=== PATIENT | female | born 1975 | race Caucasian/White ===

== ENCOUNTER 2017-04-18 16:59 | Inpatient (IN) | payer OTHER ==
[2017-04-18] MEDS ORDERED: SUMAtriptan 6 MG/0.5 ML VIAL SC ONE (17:32)
--- NOTE | 2017-04-18 17:34 | EDPHY ---
H & P Smoking Status: Current some day smoker Time Seen by Provider: 04/18/17 17:13 HPI/ROS: CHIEF COMPLAINT: Headache HISTORY OF PRESENT ILLNESS: This 42-year-old woman presents the emergency department after having driven here from [place]. She says that she just wanted to get away. She says her headache has been present for the last 24 hours. Not thunderclap in onset or worst of life. It is a typical migraine for her with left-sided headache which is associated with some mild nausea and is worse with exposure to light. Does not radiate. No trauma or injury and no toxic exposures. Does not have visual symptoms or neck pain. Further history is obtained by her father under the MDM. Apparently she called EMS because she ran out of money and was confused and did not know where she was and had a headache. REVIEW OF SYSTEMS: Eye: no change in vision ENT: no sore throat Cardiac: no chest pain or syncope Pulmonary: no cough or SOB Abdomen: no vomiting, diarrhea, abdominal pain Musculoskeletal: no back pain Skin: no rash Neuro: HPI Constitutional: no fever : no urinary symptoms Psychiatric: Admits to seeing people following her. Denies suicidal ideation or homicidal ideation A comprehensive 10 point review of systems is otherwise negative aside from elements mentioned in the history of present illness. PAST MEDICAL HISTORY: Migraine headaches. Psychotic disorder per her father. Unknown type. Fibromyalgia on gabapentin. Anxiety, admits to previous psychiatric hospitalization for depression, hypertension. Social history: Tobacco smoker. Denies drugs. General Appearance: Alert and conversant, cooperative. Eyes: No scleral icterus. ENT, Mouth: Normal mucous membranes. Respiratory: Normal respiratory effort, breath sounds equal, lungs are clear to auscultation. Cardiovascular: Regular rate and rhythm. Gastrointestinal: Abdomen is soft and non tender. Neurological: Alert and oriented x3. Normally conversant. Face symmetric, normal movement and sensation in all extremities. Normal [id number]-[id number]-mtei bilaterally, no pronator drift. Ambulatory without ataxia. Skin: Warm and dry, no rashes. Musculoskeletal: No peripheral edema and no joint swelling. Psychiatric: Patient suspicious. Reluctant to give me details about previous psychiatric hospitalization. Reluctant to discuss the details of the fact that she is seeing people following her. Emergency Department course/MDM: Patient's father called us; discussed at 1732. Previous hospitalizations for psychiatric reasons, mentions schizophrenia as previous diagnosis mentioned to him. Previous paranoia about people listening through the radio to her, following her. Better on medications. Patient called cousin in [place], cousin called patient's uncle, that person called her father, father called PD, PD told father she was at [facility]. According to the father the patient called 911 because she was confused, did not know where she was, was out of money, and had a headache. After this information, patient is placed on a mental hold by myself for grave disability. 1841: Patient is up to the bathroom, feels better. Smiling. Treated for hypokalemia with 2 g IV magnesium and 40 mEq oral potassium. 2100: Signed out to Alejandrina at 1999 with psych evaluation pending. Repeat Istat K+ now. (Raghavendra Marinelli) Constitutional: Initial Vital Signs Temperature (C) 36.8 C 04/18/17 17:25 Heart Rate 103 H 04/18/17 17:25 Respiratory Rate 18 04/18/17 17:25 Blood Pressure 128/97 H 04/18/17 17:25 O2 Sat (%) 94 04/18/17 17:25 O2 Delivery Mode Room Air Allergies/Adverse Reactions: Sulfa (Sulfonamide Antibiotics) Allergy (Verified 04/18/17 17:33) Home Medications: Medication Instructions Recorded Dextroamphetamine/Amphetamine 30 mg PO BID 04/18/17 [Adderall 30 mg Tablet] Gabapentin [Neurontin 300 MG (*)] 600 mg PO QID PRN 04/18/17 Hydrochlorothiazide [HCTZ (*)] 25 mg PO BID 04/18/17 Potassium Cl [Klor-Con] 10 meq PO BID 04/18/17 Sumatriptan Succinate [Imitrex] 100 mg PO DAILY PRN 04/18/17 Aspirin [Aspirin 325 mg (*)] 325 mg PO DAILY PRN 04/19/17 Ibuprofen [Motrin (*)] 200 mg PO DAILY PRN 04/19/17 Medical Decision Making ED Course/Re-evaluation: 0 700: The patient was signed out to me at change of shift. I discussed the case with Dr. Rueda. EPS will come and re-evaluate the patient this morning. At the time of sign out the patient was doing well. She was resting comfortably in the bed. She had no complaints. Patient became mildly agitated. She consented to Ativan. She was given 1 mg IV. 905: EMTALA completed 1015: EMS transferred the patient to [address] [place] [address]. (Daisy Schroeder) Differential Diagnosis: Differential diagnosis considered for headache including but not limited to subarachnoid hemorrhage, migraine headache, tension headache and infectious causes such as meningitis, pharyngitis and sinusitis. (Raghavendra Marinelli) Other Provider: I assumed care of the patient at 8:00 p.m. pending medical clearance and psychiatric evaluation. Patient does take Adderall which has been prescribed for her. Additionally she is post to take 10 mg of oral potassium a day. The patient did receive an additional IV potassium replacement in the emergency department. The patient has been medically cleared by myself for psychiatric evaluation at 9:00 p.m.. The patient remained stable throughout my shift and is turned over to Dr. Kulkarni at 11pm pending psychiatric disposition. (Jhonathan Tinoco) 6:30 a.m.- I assumed care of the patient at approximately 11:00 p.m. last night. She has been stable throughout my shift. I did give her a dose of Toradol for her headache and she has otherwise been resting comfortably. She was evaluated by the mental health team who thought that she was quite lucid though did present with psychosis. They would like to reassess her this morning. The case will be signed out to the oncoming provider Dr. Schroeder pending psychiatric re- evaluation. (Brianna Kulkarni) - Data Points Laboratory Results: Laboratory Results 04/18/17 17:40 04/18/17 17:40 Medications Given: Discontinued Medications Gabapentin (Neurontin) 800 mg PO EDNOW ONE Stop: 04/18/17 20:48 Last Admin: 04/18/17 20:48 Dose: 800 mg Gabapentin (Neurontin) 600 mg PO EDNOW ONE Stop: 04/19/17 08:27 Last Admin: 04/19/17 08:40 Dose: 600 mg Magnesium Sulfate (Magnesium Sulf 2 Gm (Premix)) 50 mls @ 50 mls/hr IV EDNOW ONE Stop: 04/18/17 19:21 Last Admin: 04/18/17 18:25 Dose: 50 mls Potassium Chloride (Potassium Cl 10 Meq (Premix)) 100 mls @ 100 mls/hr IV Q1H VERNA Stop: 04/18/17 23:14 Last Admin: 04/19/17 00:47 Dose: 100 mls Ibuprofen (Motrin) 600 mg PO EDNOW ONE Stop: 04/19/17 00:15 Last Admin: 04/19/17 00:14 Dose: 600 mg Lorazepam (Ativan Injection) 1 mg IVP EDNOW ONE Stop: 04/19/17 08:45 Last Admin: 04/19/17 08:56 Dose: Not Given Nicotine (Nicoderm Cq) 21 mg TD EDNOW ONE Stop: 04/18/17 20:48 Last Admin: 04/18/17 20:48 Dose: 21 mg Potassium Chloride (Klor-Con) 40 meq PO EDNOW ONE Stop: 04/18/17 18:23 Last Admin: 04/18/17 18:25 Dose: 40 meq Sumatriptan Succinate (Imitrex Sc Injection) 6 mg SC EDNOW ONE Stop: 04/18/17 17:33 Last Admin: 04/18/17 17:52 Dose: 6 mg Departure - Departure Disposition: [facility] IP Clinical Impression: Hypokalemia Psychotic disorder Qualifiers: Psychosis type: unspecified psychosis type Qualified Code(s): F29 - Unspecified psychosis not due to a substance or known physiological condition Migraine headache Qualifiers: Migraine type: unspecified Status migrainosus presence: without status migrainosus Intractability: not intractable Qualified Code(s): G43.909 - Migraine, unspecified, not intractable, without status migrainosus Condition: Good Referrals: Patient,NotPresent [Unknown] - As per Instructions
[2017-04-18 18:07] LABS: % IMMATURE GRANULYOCYTES 0.1 % (0.0-1.1); ABSOLUTE IMMATURE GRANULOCYTES 0.01 10^3/uL (0.00-0.10); ADD DIFF? NO; ADD MORPH? NO; ADD SCAN? NO; ATYPICAL LYMPHOCYTE FLAG 0 (0-99); FRAGMENT RBC FLAG 0 (0-99); HEMATOCRIT 37.9 % (38.0-47.0); HEMOGLOBIN 13.3 g/dL (12.6-16.3); LEFT SHIFT FLG 0 (0-99); LIPEMIA HEMOLYSIS FLAG 90 (0-99); MEAN CELL HEMOGLOBIN 31.1 pg (27.9-34.1); MEAN CELL HEMOGLOBIN CONCENTR. 35.1 g/dL (32.4-36.7); MEAN CELL VOLUME 88.6 fL (81.5-99.8); MEAN PLATELET VOLUME 9.7 fL (8.7-11.7); PLATELET CLUMPS FLAG 10 (0-99); PLATELET COUNT 247 10^3/uL (150-400); RED BLOOD CELL COUNT 4.28 10^6/uL (4.18-5.33); RED CELL DISTRIBUTION WIDTH 14.3 % (11.5-15.2)
[2017-04-18 18:16] LABS: ANION GAP 12 mEq/L (8-16); CARBON DIOXIDE 28 mEq/l (22-31); CHLORIDE 99 mEq/L (97-110); CREATININE 0.7 mg/dL (0.6-1.0); ETHANOL SERUM < 10 mg/dL (0-10); GLOMERULAR FILTRATION RATE > 60; GLUCOSE 93 mg/dL (70-100); POTASSIUM 2.9 mEq/L (3.5-5.2); SODIUM 139 mEq/L (134-144)
[2017-04-18] MEDS ORDERED: POTASSIUM CL 20 MEQ TAB PO ONE (18:22)
[2017-04-18] MEDS ORDERED: MAGNESIUM SULF 2 GM/WATER 50 ML IV ONE (18:22)
[2017-04-18] MEDS: POTASSIUM Cl (KCl) 100 ML IV SCH ×2 (20:24→21:38)
[2017-04-18] MEDS ORDERED: GABAPENTIN 300 MG CAP ONE (20:41)
[2017-04-18] MEDS ORDERED: NICOTINE 21 MG/24 HR PATCH TD ONE ×2 (20:41→20:47)
[2017-04-18] MEDS ORDERED: GABAPENTIN 100 MG CAP ONE (20:41)
[2017-04-18] MEDS ORDERED: GABAPENTIN 100 MG CAP PO ONE (20:47)
[2017-04-18] MEDS ORDERED: LORazepam 1 MG TAB ONE (21:58)
[2017-04-18] MEDS ORDERED: HYDROCODONE/APAP 5/325 TAB ONE (21:58)
[2017-04-19] MEDS ORDERED: IBUPROFEN 600 MG TAB PO ONE ×3 (00:09→09:07)
[2017-04-19] MEDS: POTASSIUM Cl (KCl) 100 ML IV SCH (00:47)
[2017-04-19] MEDS ORDERED: GABAPENTIN 300 MG CAP PO ONE (08:26)
[2017-04-19] MEDS ORDERED: LORazepam 2 MG/ML INJ IVP ONE (08:44)
[2017-04-19] MEDS ORDERED: MAGNESIUM HYDROXIDE 30 ML UDCUP PO PRN (12:03)
[2017-04-19] MEDS ORDERED: OLANZapine DISINTEGR 10 MG TAB PO PRN (12:03)
[2017-04-19] MEDS ORDERED: SUMAtriptan 6 MG/0.5 ML VIAL SC ONE ×2 (12:06→16:13)
[2017-04-19] MEDS: NICOTINE POLACRILEX 2 MG GUM B PRN (13:59)
--- NOTE | 2017-04-19 14:36 | BCON ---
[f rep st] BEHAVIORAL HEALTH CONSULTATION INTERNAL MEDICINE CONSULTATION. DATE OF CONSULTATION: 04/19/2017 REFERRING PHYSICIAN: Mac Coreas MD REASON FOR CONSULTATION: Medical clearance for inpatient behavioral health stay. HISTORY OF PRESENT ILLNESS: The patient had just driven to [place] from [place], [place], had a headache and confusion, and so called , and was brought to the emergency department. In the Emergency Department, there was communication with the patient's father, who reported that she had a history of mental illness. She was assessed by the mental health team and noted to have a history of psychosis and was considered gravely disabled, and so was admitted to inpatient Psychiatry. Currently, she reports feeling tired. Otherwise, she has no acute medical complaints. She does report that she has chronic leg pain, either due to venous issues or fibromyalgia. She does not currently have a headache. PAST MEDICAL HISTORY: 1. Migraine headaches. 2. Fibromyalgia. 3. Hypertension. PAST SURGICAL HISTORY: She has had a vein stripping procedure in her legs. ALLERGIES: Listed to sulfa. MEDICATIONS: Prior to admission: 1. Ibuprofen 200 mg p.o. daily p.r.n. 2. Aspirin 325 mg p.o. daily p.r.n. 3. Hydrochlorothiazide 25 mg p.o. twice b.i.d. 4. Gabapentin 600 mg p.o. q.i.d. p.r.n. 5. Dextroamphetamine/amphetamine 30 mg p.o. twice daily. 6. Sumatriptan 100 mg p.o. daily p.r.n. 7. Potassium chloride 10 mg p.o. twice daily. SOCIAL HISTORY: She is . She has 2 teenage children who are with their father. 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 She is a tobacco smoker, and she came to [place] in consideration of moving out of [place], [place]. FAMILY HISTORY: Noncontributory. REVIEW OF SYSTEMS: Other than as in HPI, a 10-point review of systems was conducted and was negative. PHYSICAL EXAMINATION: VITAL SIGNS: Blood pressure is 121/64. Heart rate is 103. Respiratory rate is 12. Oxygen saturation is 97% on room air. Temperature is 36.6 degrees centigrade. Her weight is 72.6 kg for a body mass index of 25.8. GENERAL: This is an overweight-appearing woman, appears her chronologic age. Cooperative and in no acute distress. HEENT: Extraocular movements are intact. Pupils are equal, round, and reactive to light. Mucous membranes are moist. Dentition is in good condition. She has an uncrowded airway Mallampati class I. NECK: Supple. HEART: There is a regular rate and rhythm. She is tachycardic. There are no murmurs, rubs, or gallops. LUNGS: Clear to auscultation bilaterally. ABDOMEN: Soft, nontender, nondistended, with normoactive bowel sounds. EXTREMITIES: There is no cyanosis, clubbing, or edema. Radial pulses are 2+ bilaterally. Dorsalis pedis pulses are 1+ bilaterally. NEUROLOGIC: She is alert. She is oriented to location and general situation. Orientation to date and time are not checked. Cranial nerves 2-12 are grossly intact. There is no focal weakness. Sensation is intact to light touch. SKIN: Warm and dry with no rashes. LABORATORY STUDIES: Drawn in the emergency department: CBC initially revealed very mild anemia with hematocrit slightly low at 37.9. Hemoglobin and hematocrit were retested later and were normal at 13.6 and 40. There were otherwise no abnormalities in her CBC. Serum chemistry initially showed a potassium of 2.9; otherwise, was within normal limits. Recheck of BMP revealed a potassium of 2.8. Beta hCG was negative for . Toxicology screen in the serum was negative for ethyl alcohol, and the urine was non-negative for amphetamines, but otherwise negative for substances of abuse. ASSESSMENT AND RECOMMENDATIONS: 1. Mental health issues, pending further evaluation and management per Psychiatry and the mental health team. 2. Tachycardia. She also complains of thirst. This may be consistent with dehydration. Advised serial monitoring of her vital signs as she hydrates more normally. 3. Hypertension by history. She is not currently hypertensive. Question the prescription of hydrochlorothiazide 25 mg b.i.d. It is usually a daily drug. Given her hypokalemia, would have some caution about restarting hydrochlorothiazide. Consider a calcium channel ana m or an EPI inhibitor. In any case, she is not currently hypertensive and does not have any need for blood pressure medications. If her blood pressure begins to be consistently above 140/90, please contact the Internal Medicine or Hospitalist service for further medication decisions. 4. Hypokalemia. I have ordered a repeat BMP in the morning. 5. Migraine headaches. Advise use of sumatriptan on a p.r.n. basis should she have recurrent migraines. I see no medical contraindications to the patient's continued stay on the inpatient behavioral health unit or to any psychiatric medications or procedures. Thank you very much for including me in the care of this patient, and please do not hesitate to contact me or the hospitalist service should there be need for further medical evaluation. /[id number]/MODL MTDD
[2017-04-19] MEDS: GABAPENTIN 300 MG CAP PO PRN (16:30)
--- NOTE | 2017-04-19 16:47 | BAPA ---
[f rep st] ADMISSION PSYCHIATRIC ASSESSMENT DATE OF SERVICE: 04/19/2017 CHIEF COMPLAINT: "I just need to get back to [place]." HISTORY OF PRESENT ILLNESS: The patient is a 42-year-old female who reports being on "a r oad trip to clear my mind." She states that she abruptly left her home in [place] without telling family on Monday and drove her car to [place]. She is vague about why she did this except that she felt some how stressed and was considering relocating to [place] and "thought I would check it out ." She states that she drove through the night and has been staying in her car and not sleeping muc h for the past 3 days. She reports becoming concerned over the last 24 hours that people are follow ing her. She pulled her car to the side of the road in [place] after returning from [place]. Kj rosario then called 911 stating that she had a headache and was afraid. When EMS arrived, she stated that she had a "splitting migraine" and was brought to the emergency department. In the emergency depar tment she appeared to be agitated and paranoid stating that she believed that people were following her and that she was unsafe. She also reported somewhere along the way that she was being monitored through the radio of her car. The patient was medically cleared and noted to have some hypokalemia that was replenished but became agitated again and received emergency medications. She was then ad mitted to [address] [place] [address] on an M1 hold. Today, she states that she feels like "everything is fake." She s tates that she believes "this whole thing is a joke and you are all in a play." She states that "I shouldn't say that, I know I shouldn't say that." By this she seems to mean that we will keep her i n the hospital if she appears to be psychotic. She states, however, she cannot discriminate between these thoughts that this is a practical joke or that it is real. She states "it's really funny at first, then really scary." She is tearful when I discuss with her the need for evaluation in the [facility] at least in the short term, and states that she is afraid to be here and wants to go home and be around her family. She then states that she will not contact her family because she does not wa nt to involve them in her care. She cannot describe why it is she decided to leave her home or what goals she had or specifically who she thought was following or bothering her. She minimizes this a t first, but then states that she is continuing to feel like that there is an organized group of peo ple out there trying to harm her. She states "there must be a lot of people who hate me." When I a sked why she would think this, she states "because there is nothing likable about me. I am very sim ple and I am nothing special." PAST PSYCHIATRIC HISTORY: Significant for 1 previous hospitalization in 2009 where she states she w as trying to come off opioid pain medications and had some thoughts of suicide. She has been treate d for depression over time with Effexor, Prozac, Zoloft and Cymbalta which she states "didn't do any thing." She denies any previous history of psychosis, though at one point in the interview, states that "things do seem weird at times." She is not currently under any psychiatric care or taking any medications. ALLERGIES: Sulfa. CURRENT MEDICATIONS: Gabapentin 600 mg q.i.d., hydrochlorothiazide 25 mg b.i.d., potassium 10 mEq b .i.d. and sumatriptan 100 mg daily p.r.n. headache. PAST MEDICAL HISTORY: Significant for hypertension and chronic headaches. She also states she has chronic pain in her leg after having a varicose vein procedure. She reports a concussion at the age of 10 and fibromyalgia. SOCIAL HISTORY: Patient lives in [place] in a home she rents by herself. She is for the past year though states she has a relationship with her ex-. She has 2 children, aged 14 and 16 who live with her though she states she has 50% custody. She is unemployed, not working since August 2010 due to her leg pain and headaches. She has a degree in special education. She subsists at this time on support from her ex-. She states she has a number friends though regalado s not been in contact with any recently. She has 2 sisters and a brother and states that she gets a long with them but also has not been in much contact with them. Her parents are other supports for her locally at home. She reports liking art, music, the outdoors and spending time with her childre n though states she has not done these things recently either. She denies any legal problems. SUBSTANCE ABUSE HISTORY: Patient states that she has a past history of opioid abuse though has not used since 2009 and vapes nicotine. FAMILY HISTORY: Significant for multiple first-degree family members with depression. ADMISSION LABORATORY: CBC shows hematocrit slightly down at 37.9 with a normal hemoglobin. Serum c hemistries showed a potassium low at 2.9 and was given potassium in the emergency department. Remai nder of labs are normal. Beta HCG is negative. Urine drug screen is positive for amphetamines. MENTAL STATUS EXAMINATION: Reveals an adequately groomed, casually dressed female. She i s somewhat guarded but pleasantly interactive throughout most of the interview. At the end of the i nterview when I discuss her need to be in the hospital during her 72-hour evaluation, she becomes di straught and is very anxious and tearful and stating she must leave the hospital immediately. Her a ffect is constricted and anxious, tearful at times. Her mood is described as "terrible cause I'm he re." Her thought process is generally linear and goal-directed. Her thought content reveals parano ia and ideas of reference. She is alert and oriented to person, place, time, and situation. There is no evidence of delirium or intoxication. Her intellect appears to be at least average as evidenc ed by her educational and occupational histories, fund of knowledge, and vocabulary. She denies any thoughts of suicide, homicide or violence. Her insight and judgment appear to be poor. IMPRESSION: Psychotic disorder, not otherwise specified; possible major depressive disorder, recurr ent, severe, with psychosis; separation from natural supports. The patient is a 42-year-old female, who presents with an acute psychotic episode. It is possible this was triggered by her sleep deprivation and this sudden road trip though I would imagin e her desire to do this, which is apparently out of character for her, is also demonstrative of a pr ogressive mental illness. She is currently refusing all medications and I provided Ativan and Zypre xa on a p.r.n. basis. She is complaining of persistent headache and requesting repeated doses of de la cruz matriptan. We will provide these within dosing guidelines. Will avoid any opioid pain medications due to her history of dependence. Will monitor her closely and attempt to ascertain the nature of h er illness and help her feel calmer. Estimated length of stay is 3-5 days. /[id number]/MODL
[2017-04-19] MEDS: LORazepam 0.5 MG TAB PO PRN (17:31)
[2017-04-20] MEDS: GABAPENTIN 300 MG CAP PO PRN ×3 (09:48→19:33)
[2017-04-20] MEDS: NICOTINE 21 MG/24 HR PATCH TD SCH (11:56)
[2017-04-20] MEDS: LORazepam 0.5 MG TAB PO PRN ×2 (12:02→18:44)
--- NOTE | 2017-04-20 15:59 | SOAPPROG ---
SOAP Progress Note Assessment/Plan: Assessment: Plan: 04/20/17 16:01 Pt displaying more paranoia and agitation. Will schedule Zyprexa, monitor. Subjective: Pt seen, discussed with staff. Agitated, angry, yelling at me about needing to be discharged. Insists she does not have a mental illness and does not need to be in the hospital. Remains paranoid, stating she is being held illegally and that we are not allowing her to use the phone. She was unable to understand the directions or follow unit procedures regarding phone times. Believes the nurse is "messing with me." States "the phones aren't real anyway. None of this real." I have to terminate the interview due to her escalation. Objective: Vital Signs Temp Pulse Resp BP Pulse Ox 36.8 C 100 15 98/53 L 91 L 04/20/17 06:20 04/20/17 06:20 04/20/17 06:20 04/20/17 06:20 04/20/17 06:20 MSE: Agitated, hostile, uncooperative. TP is tangential, perseverative. TC reveals paranoia, IOR's. - Time Spent With Patient Time Spent With Patient: 25" - Pending Discharge Pending Discharge Within 24 Hours: No Pending Discharge Within 48 Hours: No ICD10 Worksheet Patient Problems: Problems Problem Status Onset Hypokalemia Acute Migraine headache Acute Psychotic disorder Acute
[2017-04-20] MEDS: OLANZapine DISINTEGR 10 MG TAB PO SCH (19:33)
[2017-04-20] MEDS: DOCUSATE SODIUM 100 MG CAP PO SCH (19:33)
[2017-04-20 21:03] LABS: ANION GAP 12 mEq/L (8-16); CALCIUM 9.2 mg/dL (8.5-10.4); CARBON DIOXIDE 25 mEq/l (22-31); CHLORIDE 103 mEq/L (97-110); CREATININE 0.7 mg/dL (0.6-1.0); GLOMERULAR FILTRATION RATE > 60; GLUCOSE 88 mg/dL (70-100); POTASSIUM 3.5 mEq/L (3.5-5.2); SODIUM 140 mEq/L (134-144)
[2017-04-21] MEDS: DOCUSATE SODIUM 100 MG CAP PO SCH ×2 (10:17→19:22)
[2017-04-21] MEDS: LORazepam 0.5 MG TAB PO PRN ×2 (10:21→17:13)
[2017-04-21] MEDS: ASPIRIN 325 MG TAB PO PRN (10:21)
[2017-04-21] MEDS: GABAPENTIN 300 MG CAP PO PRN ×3 (10:22→19:22)
[2017-04-21] MEDS: NICOTINE POLACRILEX 2 MG GUM B PRN ×4 (10:22→18:44)
[2017-04-21] MEDS: NICOTINE 21 MG/24 HR PATCH TD SCH (10:22)
[2017-04-21] MEDS ORDERED: CETIRIZINE 10 MG TAB PO PRN (13:46)
[2017-04-21] MEDS ORDERED: POLYETHYLENE GLYCOL 3350 17 GM PKT PO ONE (14:00)
--- NOTE | 2017-04-21 14:46 | SOAPPROG ---
SOAP Progress Note Assessment/Plan: Assessment: Plan: 04/20/17 16:01 Pt displaying more paranoia and agitation. Will schedule Zyprexa, monitor. 04/21/17 14:45 Calmer today. CCM. Continue d/c planning. Subjective: Pt seen, discussed with staff. Reports feeling calmer today. Cooperative and interactive. States she is agreeable to staying in the hospital until a safe d/ c plan is in place. She has decided to rely on family primarily for help. Slept well with Zyprexa though remained sedated through the morning. Objective: Vital Signs Temp Pulse Resp BP Pulse Ox 36.6 C 104 H 12 121/76 H 97 04/21/17 06:26 04/21/17 10:15 04/21/17 10:15 04/21/17 10:15 04/21/17 10:15 Laboratory Results 04/20/17 17:10 - Time Spent With Patient Time Spent With Patient: 25" - Pending Discharge Pending Discharge Within 24 Hours: No Pending Discharge Within 48 Hours: No ICD10 Worksheet Patient Problems: Problems Problem Status Onset Hypokalemia Acute Migraine headache Acute Psychotic disorder Acute
[2017-04-21] MEDS: OLANZapine DISINTEGR 10 MG TAB PO SCH (19:21)
[2017-04-22] MEDS: LORazepam 0.5 MG TAB PO PRN ×2 (01:30→11:35)
[2017-04-22] MEDS: GABAPENTIN 300 MG CAP PO PRN ×3 (11:34→19:34)
[2017-04-22] MEDS: DOCUSATE SODIUM 100 MG CAP PO SCH ×2 (11:35→20:36)
[2017-04-22] MEDS: NICOTINE 21 MG/24 HR PATCH TD SCH (11:36)
--- NOTE | 2017-04-22 11:47 | SOAPPROG ---
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 sedation on 10 mg with sign/out indicating intention of decreasing to 5 mg/ on direct exam this AM pt didn't appear sedated but did present as nonpsychotic, mildly pressured and concrete in thought process; minimizing problems and requesting DC in next 2 days; i explained that she would be extending inpt course to stabilize further and complete workup to inform DC planning ASSESSMENT/PLAN: early phase restabilization/ will decrease Zyprexa to 5 mg hs as Nursing reports pt sedated this AM; address working thru pt about divorce outcome after CC authenticates the closure information; CP d/w nursing in Rounds Objective: Vital Signs Temp Pulse Resp BP Pulse Ox 36.8 C 98 16 121/73 H 94 04/22/17 02:27 04/22/17 02:27 04/22/17 02:27 04/22/17 02:27 04/22/17 02:27 Laboratory Results 04/20/17 17:10 ICD10 Worksheet Patient Problems: Problems Problem Status Onset Hypokalemia Acute Migraine headache Acute Psychotic disorder Acute
[2017-04-22] MEDS: HYDROCHLOROTHIAZIDE 25 MG TAB PO SCH (13:33)
[2017-04-22] MEDS: NICOTINE POLACRILEX 2 MG GUM B PRN ×3 (16:03→20:39)
[2017-04-22] MEDS: ACETAMINOPHEN 325 MG TAB PO PRN (19:35)
[2017-04-22] MEDS: OLANZapine DISINTEGR 5 MG TAB PO SCH (20:36)
[2017-04-22] MEDS: POTASSIUM CL 10 MEQ TAB PO SCH (21:06)
--- NOTE | 2017-04-23 07:18 | SOAPPROG ---
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 sedation on 10 mg with sign/out indicating intention of decreasing to 5 mg/ on direct exam this AM pt didn't appear sedated but did present as nonpsychotic, mildly pressured and concrete in thought process; minimizing problems and requesting DC in next 2 days; i explained that she would be extending inpt course to stabilize further and complete workup to inform DC planning. ASSESSMENT/PLAN: early phase restabilization/ will decrease Zyprexa to 5 mg hs as Nursing reports pt sedated this AM; address working thru pt about divorce outcome after CC authenticates the closure information; CP d/w nursing in Rounds 04/23/17 DAY UPDATE/EXAM: Objective: Vital Signs Temp Pulse Resp BP Pulse Ox 36.8 C 108 H 16 132/69 H 94 04/23/17 03:53 04/23/17 03:53 04/23/17 03:53 04/23/17 03:53 04/23/17 03:53 Laboratory Results 04/20/17 17:10 ICD10 Worksheet Patient Problems: Problems Problem Status Onset Hypokalemia Acute Migraine headache Acute Psychotic disorder Acute
[2017-04-23] MEDS: GABAPENTIN 300 MG CAP PO PRN ×3 (07:59→17:33)
[2017-04-23] MEDS: NICOTINE 21 MG/24 HR PATCH TD SCH (07:59)
[2017-04-23] MEDS: DOCUSATE SODIUM 100 MG CAP PO SCH ×2 (07:59→22:07)
[2017-04-23] MEDS: POTASSIUM CL 10 MEQ TAB PO SCH ×2 (08:00→22:07)
[2017-04-23] MEDS: HYDROCHLOROTHIAZIDE 25 MG TAB PO SCH ×2 (08:00→15:16)
[2017-04-23] MEDS: NICOTINE POLACRILEX 2 MG GUM B PRN ×4 (10:00→22:10)
--- NOTE | 2017-04-23 13:15 | SOAPPROG ---
SOAP Progress Note Assessment/Plan: Assessment: Plan: 04/22/17 11:30 DAY ' UPDATE/EXAM: Nursing reports pt in behavioral control, not observably paranoid but with poor insight and requesting DC this weekend; Pt presents with history of unstable Bipolar Disorder Type 1, admitted to with c/o manic/psychotic decompensation and h/o doctor-shopping for pain meds; left [facility]. 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 sedation on 10 mg with sign/out indicating intention of decreasing to 5 mg/ on direct exam this AM pt didn't appear sedated but did present as nonpsychotic, mildly pressured and concrete in thought process; minimizing problems and requesting DC in next 2 days; i explained that she would be extending inpt course to stabilize further and complete workup to inform DC planning. ASSESSMENT/PLAN: early phase restabilization/ will decrease Zyprexa to 5 mg hs as Nursing reports pt sedated this AM; address working thru pt about divorce outcome after CC authenticates the closure information; CP d/w nursing in Rounds 04/23/17 11:00 DAY 04/11' UPDATE/EXAM: Nursing reports pt evidencing her reactivity to prepsychotic/ psychotic level last pm in jpresenting eith disorganized thought process and regressive insistence that staff talk with her family/ today is better and on direct exam remained organized, mildly elevated, disclosing in speaker phone meeting with SOC and CC present; pt understan ing and cooperative with extending stay to stabilize, complete workup, contact employment law attorney to update divorce process while an inpt for therapeutyc de la cruz[[prt and working thru the outcome of the divorce process. 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
[2017-04-23] MEDS: ASPIRIN 325 MG TAB PO PRN (17:33)
[2017-04-23] MEDS: OLANZapine DISINTEGR 5 MG TAB PO SCH (22:07)
[2017-04-23] MEDS: LORazepam 0.5 MG TAB PO PRN (23:45)
[2017-04-24] MEDS: ACETAMINOPHEN 325 MG TAB PO PRN (00:13)
[2017-04-24] MEDS: NICOTINE POLACRILEX 2 MG GUM B PRN ×2 (01:43→13:35)
--- NOTE | 2017-04-24 06:48 | SOAPPROG ---
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 sedation on 10 mg with sign/out indicating intention of decreasing to 5 mg/ on direct exam this AM pt didn't appear sedated but did present as nonpsychotic, mildly pressured and concrete in thought process; minimizing problems and requesting DC in next 2 days; I explained that she would be extending inpt course to stabilize further and complete workup to inform DC planning; pt became agitated and more demanding about DC, threatened to sign out AMA; I explained again that need to extend her inpt stay and that was stable for safe DC. ASSESSMENT/PLAN: early phase restabilization; currently resistant to staying and reactively agitated/ will decrease Zyprexa to 5 mg hs as Nursing reports pt sedated this AM; address working thru pt about divorce outcome after CC authenticates the closure information; CP d/w nursing in Rounds; after session put pt on M1 Hold and reviewed CP focus with second shift wrt to reintegrative interventions. 04/23/17 11:00 DAY 04/11' UPDATE/EXAM: Nursing reports pt evidencing her reactivity to prepsychotic/ psychotic level last pm in presenting with disorganized thought process and regressive insistence that staff talk with her family/ today is better and on direct exam remained organized, mildly elevated, disclosing in speaker phone meeting with SOC and CC present; pt understanding and cooperative with extending stay to stabilize, complete workup, contact health care attorney to update divorce process while an inpt for therapeutic support and working thru the outcome of the divorce process. 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
[2017-04-24] MEDS: DOCUSATE SODIUM 100 MG CAP PO SCH ×2 (09:32→21:58)
[2017-04-24] MEDS: POTASSIUM CL 10 MEQ TAB PO SCH ×2 (09:32→22:00)
[2017-04-24] MEDS: NICOTINE 21 MG/24 HR PATCH TD SCH (09:32)
[2017-04-24] MEDS: HYDROCHLOROTHIAZIDE 25 MG TAB PO SCH ×2 (09:36→15:03)
[2017-04-24] MEDS: GABAPENTIN 300 MG CAP PO PRN (09:41)
[2017-04-24] MEDS: ASPIRIN 325 MG TAB PO PRN (12:22)
--- NOTE | 2017-04-24 13:18 | SOAPPROG ---
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 sedation on 10 mg with sign/out indicating intention of decreasing to 5 mg/ on direct exam this AM pt didn't appear sedated but did present as nonpsychotic, mildly pressured and concrete in thought process; minimizing problems and requesting DC in next 2 days; I explained that she would be extending inpt course to stabilize further and complete workup to inform DC planning; pt became agitated and more demanding about DC, threatened to sign out AMA; I explained again that need to extend her inpt stay and that was stable for safe DC. ASSESSMENT/PLAN: early phase restabilization; currently resistant to staying and reactively agitated/ will decrease Zyprexa to 5 mg hs as Nursing reports pt sedated this AM; address working thru pt about divorce outcome after CC authenticates the closure information; CP d/w nursing in Rounds; after session put pt on M1 Hold and reviewed CP focus with second shift wrt to reintegrative interventions. 04/23/17 11:00 DAY 04/11' UPDATE/EXAM: Nursing reports pt evidencing her reactivity to prepsychotic/ psychotic level last pm in presenting with disorganized thought process and regressive insistence that staff talk with her family/ today is better and on direct exam remained organized, mildly elevated, disclosing in speaker phone meeting with SOC and CC present; pt understanding and cooperative with extending stay to stabilize, complete workup, contact immigration attorney to update divorce process while an inpt for therapeutic support and working thru the outcome of the divorce process. 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
[2017-04-24] MEDS ORDERED: GABAPENTIN 300 MG CAP ONE (13:40)
--- NOTE | 2017-04-24 16:17 | SOAPPROG ---
SOAP Progress Note Assessment/Plan: Assessment: Plan: 04/20/17 16:01 Pt displaying more paranoia and agitation. Will schedule Zyprexa, monitor. 04/21/17 14:45 Calmer today. CCM. Continue d/c planning. 04/24/17 16:13 Looks better today. Will CCM, continue d/c planning. Hope to have plan by the time her M-1 expires. Subjective: Pt seen, discussed with staff. Reports feeling "really tired." States she didn 't sleep well last night. Less irritable yesterday. States she is willing to work with her family on d/c plan. Compliant with meds. Events of past WE discussed inc: contraband. She denies dangerousness at this time. Placed on M- 1 due to escalation and refusal to follow the agreed-upon treatment plan. This will tomorrow. Objective: Vital Signs Temp Pulse Resp BP Pulse Ox 36.3 C 105 H 16 118/67 94 04/24/17 05:23 04/24/17 05:23 04/24/17 05:23 04/24/17 15:03 04/24/17 05:23 Laboratory Results 04/20/17 17:10 MSE: Calm, coop. Affect is blunted, stable, approp., not irritable. Mood is "fine." TP linear. TC reveals no overt psychosis. Denies SI. - Time Spent With Patient Time Spent With Patient: 25" ICD10 Worksheet Patient Problems: Problems Problem Status Onset Hypokalemia Acute Migraine headache Acute Psychotic disorder Acute
[2017-04-24] MEDS: GABAPENTIN 300 MG CAP PO SCH ×2 (16:45→21:58)
[2017-04-24] MEDS: OLANZapine DISINTEGR 5 MG TAB PO SCH (21:59)
[2017-04-24] MEDS: LORazepam 0.5 MG TAB PO PRN (22:06)
[2017-04-24] MEDS: MAG HYDROX/AL HYDROX/SIMETH 30 ML UDCUP PO PRN (22:06)
[2017-04-25 06:26] VITALS: PULSE 97; RESP 12; TEMP 97.7; O2SAT 97
[2017-04-25] MEDS: NICOTINE 21 MG/24 HR PATCH TD SCH (09:28)
[2017-04-25] MEDS: DOCUSATE SODIUM 100 MG CAP PO SCH ×2 (09:29→20:17)
[2017-04-25] MEDS: HYDROCHLOROTHIAZIDE 25 MG TAB PO SCH (09:29)
[2017-04-25] MEDS: GABAPENTIN 300 MG CAP PO SCH ×3 (09:31→20:17)
[2017-04-25] MEDS: POTASSIUM CL 10 MEQ TAB PO SCH (09:31)
[2017-04-25 09:33] VITALS: BP 131/65
[2017-04-25 10:34] LABS: ANION GAP 9 mEq/L (8-16); CARBON DIOXIDE 26 mEq/l (22-31); CHLORIDE 102 mEq/L (97-110); POTASSIUM 4.4 mEq/L (3.5-5.2); SODIUM 137 mEq/L (134-144)
[2017-04-25] MEDS ORDERED: PSEUDOEPHEDRINE LIQ 30 MG/10 ML UDSYR PO PRN (11:03)
[2017-04-25] MEDS ORDERED: SUMAtriptan 6 MG/0.5 ML VIAL SC ONE (11:10)
[2017-04-25] MEDS ORDERED: SPIRONOLACTONE 25 MG TAB PO SCH (11:15)
[2017-04-25] MEDS ORDERED: PSEUDOEPHEDRINE HCL 30 MG TAB PO PRN ×2 (11:18→11:19)
[2017-04-25] MEDS: ASPIRIN 325 MG TAB PO PRN (14:16)
[2017-04-25] MEDS: MAG HYDROX/AL HYDROX/SIMETH 30 ML UDCUP PO PRN (14:16)
[2017-04-25] MEDS: NICOTINE POLACRILEX 2 MG GUM B PRN (18:30)
[2017-04-25] MEDS: OLANZapine DISINTEGR 5 MG TAB PO SCH (22:30)
[2017-04-26] MEDS ORDERED: SPIRONOLACTONE 50 MG TAB PO SCH (09:00)
== END 2017-04-25 23:20 | disposition home or self-care (01) | DRG 885 ==
LOC: EEVIPCON 16:59 → BBEH 04-19 10:35
PROVIDERS: ADMIT Psychiatry & Neurology Psychiatry; ATTEND Psychiatry & Neurology Psychiatry
DX: F29 Unspecified psychosis not due to a substance or known physiological condition (principal); G43.909 Migraine, unspecified, not intractable, without status migrainosus; E87.6 Hypokalemia; I10 Essential (primary) hypertension; F17.210 Nicotine dependence, cigarettes, uncomplicated; F31.9 Bipolar disorder, unspecified
CPT/HCPCS: 80305; 82947-QW; 96365; G0480; J2060; J3030